=== PATIENT | female | born 1955 | race Caucasian/White ===

== ENCOUNTER 2018-03-28 21:55 | Emergency (ER) | payer OTHER ==
[~2018-03-28] VITALS: Ht 165.1 cm; Wt 47.6 kg
[2018-03-28] MEDS ORDERED: TETANUS/DIPHTHERIA TOX ADULT 0.5 ML SYR IM STA (22:23)
[2018-03-28] MEDS ORDERED: IBUPROFEN 200 MG TAB PO STA (22:23)
[2018-03-28] MEDS ORDERED: LIDOCAINE 1% W/EPINEPHRINE 20 ML VIAL INJ STA (22:23)
[2018-03-28] MEDS ORDERED: MUPIROCIN 2% OINT 22 GM TUBE TOP ONE (22:30)
[2018-03-28] MEDS ORDERED: ACETAMINOPHEN 325 MG TAB PO ONE (22:30)
[2018-03-28] MEDS ORDERED: ONDANSETRON HCL 4 MG ORAL DISINTEGRATING TAB PO ONE (22:30)
--- NOTE | 2018-03-28 23:25 | Diagnostic Imaging Report ---
EXAMINATION: Head CT without contrast. HISTORY:Status post fall. COMPARISON:None. TECHNIQUE: Multidetector axial images were obtained from the foramen magnum to the vertex without contrast. The images were reconstructed using brain and bone algorithms. Thin section brain images were reformatted into coronal and sagittal planes. Dose modulation, iterative reconstruction, and/or weight based adjustment of the mA/kV was utilized to reduce the radiation dose to as low as reasonably achievable. Intravenous contrast: None IMAGE QUALITY: Acceptable. FINDINGS: Skull/scalp: Mild left posterior parietal scalp soft tissue edema/hematoma and laceration. No acute depressed or displaced calvarial fracture. Parenchyma: No abnormal density. No acute hemorrhage, mass or acute major vascular territorial infarct. Arteries: No density suggestive of thrombosis. Dural sinuses: No abnormal density suggestive of thrombosis. Ventricles: No hydrocephalus or displacement. Extra-axial spaces: No abnormal density. Brain volume: Mild generalized cerebral volume loss. Craniocervical junction: No mass, Chiari malformation, or basilar invagination. Sella: No mass. Paranasal/mastoid sinuses: Imaged portions unremarkable. IMPRESSION: 1. Mild left posterior parietal scalp edema/hematoma and laceration. No acute fracture. 2. No acute posttraumatic intracranial abnormality. 3. Mild generalized cerebral volume loss. Signed by: Dr. Macie Shelton M.D. on 03/28/2018 11:21 PM
[2018-03-28 23:40] VITALS: BP 128/78
[2018-03-28] MEDS ORDERED: BACITRACIN ZINC 0.9GM TP ONE (23:41)
== END 2018-03-28 23:49 | disposition home or self-care (01) ==
LOC: ER 21:55
DX: S01.01XA Laceration without foreign body of scalp, initial encounter (principal); S00.83XA Contusion of other part of head, initial encounter; W18.39XA Other fall on same level, initial encounter; Y92.008 Other place in unspecified non-institutional (private) residence as the place of occurrence of the external cause
CPT/HCPCS: 70450; 90714; 99284

== ENCOUNTER 2018-04-11 08:49 | Observation (INO) | payer OTHER ==
[~2018-04-11] VITALS: Ht 165.1 cm; Wt 55.6 kg
[2018-04-11] MEDS ORDERED: SODIUM CHLORIDE 0.9% 1000ML 1,000 ML IV SCH (09:15)
[2018-04-11 09:29] LABS: BASOPHILS % 0.8 % (0.0-1.0); EOSINOPHILS # (AUTO) 0.1 (0.0-0.4); EOSINOPHILS % 2.8 % (0.0-6.0); HEMATOCRIT 45.7 % (34.2-44.1); HEMOGLOBIN 14.7 g/dL (12.0-16.0); LYMPHOCYTES # (AUTO) 2.1 (1.0-3.2); LYMPHOCYTES % 42.3 % (18.0-39.1); MEAN CORPUSCULAR HEMOGLOBIN 32.2 pg (28-32); MEAN CORPUSCULAR HGB CONC 32.2 g/dL (31-35); MEAN CORPUSCULAR VOLUME 100.2 fL (81-99); MONOCYTES # (AUTO) 0.4 (0.2-0.8); MONOCYTES % 7.9 % (4.4-11.3); NEUTROPHILS # (AUTO) 2.3 (2.1-6.9); PLATELET COUNT 229 x10e3/uL (140-360); RED BLOOD COUNT 4.56 x10e6/uL (3.6-5.1); RED CELL DISTRIBUTION WIDTH 12.6 % (11.7-14.4)
[2018-04-11 09:33] LABS: BILIRUBIN,URINE NEGATIVE (NEGATIVE); CLARITY,URINE CLEAR (CLEAR); COLOR,URINE YELLOW (YELLOW); KETONES,URINE NEGATIVE (NEGATIVE); LEUKOCYTE ESTERASE ,URINE NEGATIVE (NEGATIVE); NITRITE,URINE NEGATIVE (NEGATIVE); PROTEIN,URINE DIPSTICK NEGATIVE (NEGATIVE); URINE UROBILINOGEN 0.2 mg/dL (0.2 - 1)
[2018-04-11 09:44] LABS: INR 0.87; PROTHROMBIN TIME 12.7 seconds (11.9-14.5)
[2018-04-11 09:50] LABS: PARTIAL THROMBOPLASTIN TIME 32.6 seconds (23.8-35.5)
--- NOTE | 2018-04-11 09:51 | Diagnostic Imaging Report ---
EXAMINATION: Head CT HISTORY: Posterior mental status COMPARISON: Head CT and 03/28/2018 TECHNIQUE: Multidetector axial images were obtained without contrast from the foramen magnum to the vertex . The images were reconstructed using brain and bone algorithms. Thin section brain images were reformatted into coronal and sagittal planes. Image quality: Motion/streaking artifact limits the evaluation of the skull base and posterior cranial fossa. Dose modulation, iterative reconstruction, and/or weight based adjustment of the mA/kV was utilized to reduce the radiation dose to as low as reasonably achievable. FINDINGS: Parenchyma: 1. No abnormal densities. 2. No mass or hemorrhage. No CT evidence of acute territorial vascular insult. Extra-axial spaces:No abnormal density. No extra-axial fluid collections Brain volume: Normal for age. Ventricles: No hydrocephalus or displacement. Arteries: No density suggestive of thrombus. Dural sinuses: No abnormal density. Extra-axial spaces: No abnormal density. Foramen magnum: No mass, Chiari malformation, or basilar invagination. Sella: No obvious mass. Paranasal/mastoid sinuses: Imaged portions unremarkable. Skull/Scalp: No lytic or blastic lesions. No fractures. IMPRESSION: Normal head CT. Signed by: Dr. Arlene Lopez M.D. on 04/11/2018 9:46 AM
[2018-04-11 09:54] LABS: ALANINE AMINOTRANSFERASE 15 IU/L (0-55); ALBUMIN 4.3 g/dL (3.5-5.0); ALBUMIN/GLOBULIN RATIO 1.5 (0.8-2.0); ALKALINE PHOSPHATASE 64 IU/L (40-150); ANION GAP 15.5 mmol/L (8-16); BLOOD UREA NITROGEN 15 mg/dL (7-26); BUN/CREATININE RATIO 21 (6-25); CALCIUM 9.6 mg/dL (8.4-10.2); CARBON DIOXIDE 28 mmol/L (22-29); CHLORIDE 103 mmol/L (98-107); CREATINE KINASE 118 IU/L (29-168); EST GLOMERULAR FILTRATION RATE > 60 ML/MIN (60-); GLUCOSE 86 mg/dL (74-118); MAGNESIUM 2.1 MG/DL (1.3-2.1); POTASSIUM 4.5 mmol/L (3.5-5.1); SODIUM 142 mmol/L (136-145)
[2018-04-11 10:08] LABS: ABG HCO3 28 mmol/L (23-28); ABG PCO2 50 mmHg (41-51); ABG PH 7.37 (7.31-7.41); ABG PO2 60 mmHg (80-105)
[2018-04-11 10:10] LABS: EPITHELIAL CELLS,URINE RARE /LPF
[2018-04-11 10:15] LABS: MAGNESIUM 2.1 MG/DL (1.3-2.1)
--- NOTE | 2018-04-11 10:17 | Diagnostic Imaging Report ---
PROCEDURE: CHEST SINGLE (PORTABLE) COMPARISON: None. INDICATIONS: ALTERED MENTAL STATUS FINDINGS: Lungs are well-inflated. No focal airspace consolidation, pleural effusion, or pneumothorax. Hazy opacity over the lung bases as a consequence of bilateral breast implants. Atherosclerotic calcification of the thoracic aorta. Normal heart size. No pulmonary edema. No acute osseous abnormality. CONCLUSION: No acute cardiopulmonary abnormality. Dictated by: Kang Alcala M.D. on 04/11/2018 at 10:25 Electronically approved by: Kang Alcala M.D. on 04/11/2018 at 10:25
[2018-04-11 10:39] LABS: ACETAMINOPHEN < 3 ug/mL (10-30); SALICYLATE < 5.0 mg/dL (0-30)
[2018-04-11 10:40] LABS: AMPHETAMINES SCREEN,URINE NEGATIVE (NEGATIVE); PHENCYCLIDINE SCREEN,URINE NEGATIVE (NEGATIVE)
[2018-04-11 10:41] LABS: BENZODIAZEPINES SCREEN,URINE POSITIVE (NEGATIVE)
[2018-04-11] MEDS ORDERED: ONDANSETRON HCL INJ 2 MG/ML VIAL IV PRN (10:45)
[2018-04-11] MEDS ORDERED: PIPER-TAZ 3.375 GM 50 ML IV ONE (10:45)
[2018-04-11] MEDS: SODIUM CHLORIDE 0.9% 1000ML 1,000 ML IV SCH ×2 (11:40→17:17)
[2018-04-11] MEDS ORDERED: IOPAMIDOL 370 MG/ML 200 ML INFUS..BTL INJ ONE (14:08)
[2018-04-11] MEDS ORDERED: SODIUM CHLORIDE 0.9% 50ML 50 ML ONE (14:08)
--- NOTE | 2018-04-11 14:53 | Diagnostic Imaging Report ---
EXAMINATION: CT of the chest, abdomen and pelvis with contrast. TECHNIQUE: Helical CT images of the chest, abdomen and pelvis were performed from the lung apices to the lesser trochanters after the intravenous administration of 150 cc of Isovue 300 and the oral administration of none. Coronal and sagittal reformatted images were obtained. COMPARISON: None. CLINICAL HISTORY:Altered mental status, sepsis DISCUSSION: CHEST: LINES/TUBES: None. LUNGS AND AIRWAYS: Atelectasis in the lung bases. PLEURA: The pleural spaces are clear. HEART AND MEDIASTINUM: The thyroid gland is normal. The heart and pericardium are within normal limits. LYMPH NODES: No significant mediastinal, hilar or axillary lymphadenopathy is seen. BONES AND SOFT TISSUES: Bilateral breast augmentation. ABDOMEN/PELVIS: HEPATOBILIARY:Small hypodensity right hepatic lobe image 75. No enhancing lesions. Gallbladder unremarkable. No ductal dilatation. SPLEEN: No splenomegaly. PANCREAS: No focal masses or ductal dilatation. ADRENALS: No adrenal nodules. KIDNEYS/URETERS: No hydronephrosis, stones, or solid mass lesions. PELVIC ORGANS/BLADDER: Larkin catheter within the decompressed bladder. PERITONEUM/RETROPERITONEUM: No free air or fluid. LYMPH NODES: No intra-abdominal,retroperitoneal, pelvic or inguinal lymphadenopathy. VESSELS: Vascular calcifications, most prominent proximal right iliac artery. GI TRACT: No distention or wall thickening. Appendix normal. BONES AND SOFT TISSUES: No bony destructive lesions. No soft tissue abnormalities. IMPRESSION: No acute CT finding chest abdomen or pelvis. Signed by: Dr. Mayo Swartz M.D. on 04/11/2018 2:48 PM
[2018-04-11] MEDS ORDERED: ACETAMINOPHEN 325 MG TAB PO PRN (15:00)
[2018-04-11] MEDS ORDERED: HYDRALAZINE HCL 20 MG/ML VIAL IV PRN (15:00)
[2018-04-11] MEDS ORDERED: MELATONIN 5 MG TABLET PO PRN (15:00)
[2018-04-11 17:02] LABS: CREATINE KINASE 115 IU/L (29-168)
[2018-04-11] MEDS: FAMOTIDINE 20 MG TAB PO SCH (18:30)
[2018-04-11] MEDS ORDERED: LACTULOSE10 GM/15 M PO (20:54)
[2018-04-11] MEDS ORDERED: MELATONIN3 MG PO (20:54)
[2018-04-11] MEDS ORDERED: ALPRAZOLAM1 MG PO (20:54)
[2018-04-11] MEDS ORDERED: Linzess PO (20:54)
[2018-04-11] MEDS ORDERED: AMITRIPTYLINE H10 MG PO (20:54)
[2018-04-11] MEDS ORDERED: RELPAX40 MG PO (20:54)
[2018-04-11] MEDS ORDERED: DULCOLAX5 MG PO (20:54)
[2018-04-11 22:11] VITALS: BP 124/58
[2018-04-11 23:00] VITALS: BP 124/58
[2018-04-12] VITALS: BP 101/57
[2018-04-12] MEDS: SODIUM CHLORIDE 0.9% 1000ML 1,000 ML IV SCH ×2 (01:31→09:36)
[2018-04-12] MEDS ORDERED: TYLENOL325 MG PO (01:39)
[2018-04-12 02:22] LABS: CREATINE KINASE 118 IU/L (29-168)
[2018-04-12 04:00] VITALS: BP 99/55
[2018-04-12 05:17] LABS: BASOPHILS % 0.6 % (0.0-1.0); EOSINOPHILS # (AUTO) 0.1 (0.0-0.4); EOSINOPHILS % 1.8 % (0.0-6.0); LYMPHOCYTES # (AUTO) 2.4 (1.0-3.2); LYMPHOCYTES % 33.2 % (18.0-39.1); MEAN CORPUSCULAR HEMOGLOBIN 32.6 pg (28-32); MEAN CORPUSCULAR HGB CONC 32.4 g/dL (31-35); MEAN CORPUSCULAR VOLUME 100.5 fL (81-99); MONOCYTES # (AUTO) 0.5 (0.2-0.8); MONOCYTES % 7.3 % (4.4-11.3); NEUTROPHILS # (AUTO) 4.1 (2.1-6.9); NEUTROPHILS % 56.8 % (38.7-80.0); PLATELET COUNT 181 x10e3/uL (140-360); RED BLOOD COUNT 3.68 x10e6/uL (3.6-5.1); RED CELL DISTRIBUTION WIDTH 12.3 % (11.7-14.4)
[2018-04-12 05:38] LABS: ALANINE AMINOTRANSFERASE 11 IU/L (0-55); ALBUMIN 3.3 g/dL (3.5-5.0); ALKALINE PHOSPHATASE 46 IU/L (40-150); ANION GAP 12.8 mmol/L (8-16); BILIRUBIN,DIRECT 0.1 mg/dL (0.0-0.5); BLOOD UREA NITROGEN 9 mg/dL (7-26); BUN/CREATININE RATIO 15 (6-25); CALCIUM 8.2 mg/dL (8.4-10.2); CARBON DIOXIDE 23 mmol/L (22-29); CHLORIDE 109 mmol/L (98-107); CREATININE, SERUM 0.59 mg/dL (0.57-1.11); EST GLOMERULAR FILTRATION RATE > 60 ML/MIN (60-); GLUCOSE 72 mg/dL (74-118); MAGNESIUM 1.6 MG/DL (1.3-2.1); POTASSIUM 3.8 mmol/L (3.5-5.1); SODIUM 141 mmol/L (136-145)
[2018-04-12 07:33] VITALS: BP 107/63
[2018-04-12] MEDS ORDERED: ELETRIPTAN HYDROBROMIDE 40 MG TAB PO PRN (07:45)
[2018-04-12] MEDS ORDERED: LACTULOSE SYRUP 20 GM/30 ML UDC PO PRN (07:45)
[2018-04-12] MEDS ORDERED: BISACODYL 5 MG TAB EC PO PRN (07:45)
[2018-04-12] MEDS ORDERED: LINACLOTIDE 145 MCG CAPSULE PO SCH (09:00)
[2018-04-12] MEDS: FAMOTIDINE 20 MG TAB PO SCH (09:01)
--- NOTE | 2018-04-12 15:06 | Discharge Summary ---
ADMISSION DIAGNOSES 1. Altered mental status. 2. Amyotrophic lateral sclerosis. 3. Drug overdose. 4. Migraines. 5. Insomnia. 6. Constipation. DISCHARGE DIAGNOSES 1. Altered mental status. 2. Amyotrophic lateral sclerosis. 3. Drug overdose. 4. Migraines. 5. Insomnia. 6. Constipation. HISTORY: Patient has a history of ALS, migraines and insomnia and constipation, surgical history of hysterectomy and bilateral cataract surgery. Family history of diabetes in her brother and cancer in her mom, dad, brother and both grandmothers, one of which had Shobha Gehrig's disease. SOCIAL HISTORY: Patient denies alcohol and illicit drug use but does admit to smoking 1 pack per day. HOSPITAL COURSE: A 62-year-old female brought to the ER because family was unable to wake her up. Patient admits to taking too many Xanax because she is scared to of ALS complications. She is unsure of how many she took, but family estimates she took about 15 pills. The pills were Xanax 1 mg. Patient is requesting to go home with hospice. On admission patient had a chest x-ray which was negative, CT of the brain negative, CT of the chest was also negative, CT of the abdomen and pelvis were negative. Urine culture negative. Labs virtually unremarkable. Her urine drug screen was positive for benzodiazepines. At time of admission, patient is alert and oriented x4 and is crying because she is scared she is going to of complications of ALS. She said she was not trying to hurt herself, just wanted to sleep. She said her family was not supposed to bring her to the ER; so, she is requesting to go home with hospice. , children, brother and patient all agree to plan. Patient will discharge home today with [facility]. She will follow up with primary care in 1 to 2 weeks. She will resume all home medicines. Vital signs stable, patient afebrile. Dictated by: Alysa Khoury NP DONYA BARRIENTOS MD Job#: [id number]
[2018-04-12] MEDS ORDERED: MELATONIN 5 MG TABLET PO SCH (21:00)
[2018-04-12] MEDS ORDERED: ALPRAZOLAM 1 MG TAB PO SCH (21:00)
[2018-04-12] MEDS ORDERED: AMITRIPTYLINE HCL 25 MG TAB PO SCH (21:00)
== END 2018-04-12 13:11 | disposition hospice, home (50) ==
LOC: ER 08:49 → ERHOLD 10:40 → MED/SURG 21:47
PROVIDERS: ADMIT Internal Medicine; ATTEND Internal Medicine
DX: T42.4X1A Poisoning by benzodiazepines, accidental (unintentional), initial encounter (principal); Y92.019 Unspecified place in single-family (private) house as the place of occurrence of the external cause; G12.21 Amyotrophic lateral sclerosis; G43.909 Migraine, unspecified, not intractable, without status migrainosus; G47.00 Insomnia, unspecified; K59.00 Constipation, unspecified; Z83.3 Family history of diabetes mellitus; Z80.9 Family history of malignant neoplasm, unspecified; F17.210 Nicotine dependence, cigarettes, uncomplicated
CPT/HCPCS: 36415; 51700; 70450; 71045; 71260; 74177; 80048; 80053; 80076; 80307; 80320; 80329 ×2; 81001; 82140; 82550 ×2; 82553 ×2; 82805; 82948; 83605; 83735 ×2; 84484 ×2; 85025 ×2; 85610; 85730; 87040; 87086; 93005; 99285; G0378 ×2; J2543; J7030 ×2; Q9967; 36600